=== PATIENT | male | born 1975 | race Hispanic/Latino ===

== ENCOUNTER 2017-02-24 14:20 | Emergency (ER) | payer OTHER ==
[2017-02-24] MEDS ORDERED: Ketorolac Tromethamine 60 MG/2 ML VIAL ONE (14:42)
== END 2017-02-24 15:15 | disposition home or self-care (01) ==
LOC: NAV ERS 14:20
DX: S39.012A Strain of muscle, fascia and tendon of lower back, initial encounter (principal); X50.9XXA Other and unspecified overexertion or strenuous movements or postures, initial encounter; Y99.0 Civilian activity done for income or pay
CPT/HCPCS: 96372; J1885

== ENCOUNTER 2017-11-10 15:27 | Emergency (ER) | payer OTHER ==
[2017-11-10] MEDS ORDERED: methylPREDNISolone Sod Succ/PF 125 MG/2 ML VIAL ONE (16:01)
== END 2017-11-10 16:26 | disposition home or self-care (01) ==
LOC: NAV ERS 15:27
DX: T63.461A Toxic effect of venom of wasps, accidental (unintentional), initial encounter (principal)
CPT/HCPCS: 96372; 99406; J2930

== ENCOUNTER 2020-07-27 16:47 | Emergency (ER) | payer OTHER, SELFPAY ==
--- NOTE | 2020-07-27 17:20 | RAD ---
Right hand 3 views HISTORY: Hand injury. FINDINGS: Mildly comminuted oblique fracture of the fifth metacarpal neck extends to the medial base of the articular surface. [place] posterior and medial angulation. Prominent overlying soft tissue swelling. Small bone island at the proximal hamate. IMPRESSION : Boxer's fracture right fifth metacarpal.
[2020-07-27] MEDS ORDERED: Ibuprofen 200 MG TAB ONE (18:04)
== END 2020-07-27 18:08 | disposition home or self-care (01) ==
LOC: NAV ERS 16:47
DX: S62.316A Displaced fracture of base of fifth metacarpal bone, right hand, initial encounter for closed fracture (principal); F17.210 Nicotine dependence, cigarettes, uncomplicated; W00.0XXA Fall on same level due to ice and snow, initial encounter
CPT/HCPCS: 29125

== ENCOUNTER 2020-08-19 18:02 | Emergency (ER) | payer SELFPAY ==
[2020-08-19] MEDS ORDERED: HYDROcodone/Acetaminophen 5/325 mg Tablet ONE (19:09)
== END 2020-08-19 19:25 | disposition home or self-care (01) ==
LOC: NAV ERS 18:02
DX: S22.42XA Multiple fractures of ribs, left side, initial encounter for closed fracture (principal); F17.210 Nicotine dependence, cigarettes, uncomplicated; W01.198A Fall on same level from slipping, tripping and stumbling with subsequent striking against other object, initial encounter

== ENCOUNTER 2020-12-03 15:33 | Outpatient (CLI) | payer OTHER | END 2020-12-03 15:34 | disposition home or self-care (01) | LOC: NAV RAD 15:33 | PROVIDERS: ATTEND Family Medicine | DX: S22.42XD Multiple fractures of ribs, left side, subsequent encounter for fracture with routine healing (principal); M54.6 Pain in thoracic spine; M25.552 Pain in left hip; M16.12 Unilateral primary osteoarthritis, left hip | CPT/HCPCS: 72072 ==